=== PATIENT | female | born 1975 | race Caucasian/White ===

== ENCOUNTER 2021-07-10 08:26 | Emergency (ER) | payer OTHER, BC ==
[2021-07-10 08:33] VITALS: BP 172/98; PULSE 91
--- NOTE | 2021-07-10 09:13 | EDM.PDOC ---
ED HPI GENERAL MEDICAL PROBLEM - General Chief Complaint: Lower Extremity Injury/Pain Stated Complaint: LEFT FOOT INJURY Time Seen by Provider: 07/10/21 09:00 Source of Information: Reports: Patient History Limitations: Reports: No Limitations - History of Present Illness INITIAL COMMENTS - FREE TEXT/NARRATIVE: Patient comes emergency department today from work with concerns of an injury to her left foot. Yesterday the patient was at work at [employer] when she was using a large battery-operated mechanical torque wrench when it slipped out of her hands and fell landing on the dorsum of her left foot. She continued the day working but was quite uncomfortable in pain. She went back to work today and still had quite a bit of discomfort in her foot therefore she saw the nurse who told her to come to the emergency department. She is able to ambulate but it is somewhat uncomfortable. She has taken some ibuprofen with some improvement of pain. She denies any paresthesias. No other injury. Left Foot Pain Score (Numeric/FACES): 9 - Related Data Allergies Allergy/AdvReac Type Severity Reaction Status Date / Time escitalopram [From Lexapro] Allergy Shaking Verified 07/10/21 08:34 Home Meds: Home Meds ALPRAZolam [Alprazolam] 1 tab PO ASDIRECTED PRN 04/06/16 [History] Metoprolol Succinate 50 mg PO DAILY 07/10/21 [History] Past Medical History - Past Health History Medical/Surgical History: Denies Medical/Surgical History Social & Family History - Tobacco Use Tobacco Use Status *Q: Current Every Day Tobacco User Years of Tobacco use: 25 Packs/Tins Daily: 1 - Caffeine Use Caffeine Use: Reports: Coffee - Recreational Drug Use Recreational Drug Use: No Review of Systems - Review of Systems Review Of Systems: Comprehensive ROS is negative, except as noted in HPI. ED EXAM, GENERAL - Physical Exam Exam: See Below Exam Limited By: No Limitations General Appearance: Alert, WD/WN, No Apparent Distress Respiratory/Chest: No Respiratory Distress Cardiovascular: Normal Peripheral Pulses Peripheral Pulses: 2+: Posterior Tibial (L), Posterior Tibial (R), Dorsalis Pedis (L), Dorsalis Pedis (R) Extremities: No: Normal Inspection (Examination of the left foot there is some swelling on the mid dorsal aspect. There is no overt bony deformity. There is no bruising swelling ecchymosis. Ankle is unremarkable. She is able to flex and extend at the joints appropriately. CMS intact appropriately. No breaks in the skin) Neurological: Alert, Oriented Psychiatric: Normal Affect, Normal Mood Skin Exam: Warm, Dry, Intact, Normal Color, No Rash Course - Vital Signs Last Recorded V/S: Last Vital Signs Temp 97.1 F 07/10/21 08:27 Pulse 91 07/10/21 08:27 Resp 20 07/10/21 08:27 BP 172/98 H 07/10/21 08:27 Pulse Ox 100 07/10/21 08:27 - Orders/Labs/Meds Orders: Active Orders 24 hr Category Date Time Status Foot Comp Min 3V Lt [CR] Stat Exams 07/10/21 08:37 Taken - Radiology Interpretation Free Text/Narrative:: X-ray of the left ankle initially reviewed extemporaneously by myself. Does not show any overt bony deformity subluxation or fractures. Radiological review to follow. - Re-Assessments/Exams Free Text/Narrative Re-Assessment/Exam: 07/10/21 09:34 I discussed with the patient my extemporaneously view of the x-ray does not show any osseous abnormality or fracture. She does not want a surgical shoe. Massimo wrap for comfort. Rice therapy. We will keep her home from work today but her next scheduled shift is not until Tuesday and she should be okay to return back at that time. Anything new or worse she should recheck. She is comfortable this plan and her questions are answered. Departure - Departure Time of Disposition: 09:10 Disposition: Home, Self-Care 01 Clinical Impression: Foot injury Qualifiers: Encounter type: initial encounter Laterality: left Qualified Code(s): S99.922A - Unspecified injury of left foot, initial encounter - Discharge Information Instructions: Pain Medicine Instructions, [id number] Forms: ED Department Discharge Additional Instructions: Tylenol and or Ibuprofen as needed for pain. Ice or heat to the foot. Massimo wrap for comfort. Return to the ED if new or worsening symptoms. Follow up with PCP in a week if not improving sooner if worse. Sepsis Event Note (ED) - Focused Exam Vital Signs: Vital Signs Temp Pulse Resp BP Pulse Ox 07/10/21 08:27 97.1 F 91 20 172/98 H 100 - My Orders Last 24 Hours: My Active Orders 07/10/21 08:37 Foot Comp Min 3V Lt [CR] Stat - Assessment/Plan Last 24 Hours: My Active Orders 07/10/21 08:37 Foot Comp Min 3V Lt [CR] Stat
== END 2021-07-10 09:30 | disposition home or self-care (01) ==
LOC: LL.ED 08:26
DX: S99.922A Unspecified injury of left foot, initial encounter (principal); Z88.5 Allergy status to narcotic agent; Z72.0 Tobacco use; W20.8XXA Other cause of strike by thrown, projected or falling object, initial encounter; Y99.0 Civilian activity done for income or pay
CPT/HCPCS: 73630-LT; 99283; 99283-25

== ENCOUNTER 2022-11-27 13:20 | Emergency (ER) | payer BC ==
[2022-11-27] MEDS ORDERED: cloNIDine 0.1 MG Tab PO ONE (14:27)
[2022-11-27 14:39] VITALS: BP 186/100; PULSE 86
== END 2022-11-27 14:55 | disposition home or self-care (01) ==
LOC: LL.ED 13:20
DX: T16.2XXA Foreign body in left ear, initial encounter (principal); H65.193 Other acute nonsuppurative otitis media, bilateral; J06.9 Acute upper respiratory infection, unspecified; B96.89 Other specified bacterial agents as the cause of diseases classified elsewhere; I16.0 Hypertensive urgency; I10 Essential (primary) hypertension; F17.210 Nicotine dependence, cigarettes, uncomplicated; Z88.8 Allergy status to other drugs, medicaments and biological substances; Z79.899 Other long term (current) drug therapy
CPT/HCPCS: 99282; A9270-GY

== ENCOUNTER 2023-03-28 15:26 | Emergency (ER) | payer BC ==
[2023-03-28 15:44] VITALS: PULSE 92
[2023-03-28 16:40] VITALS: BP 182/108
== END 2023-03-28 16:00 | disposition home or self-care (01) ==
LOC: LL.ED 15:26
DX: M62.830 Muscle spasm of back (principal); I10 Essential (primary) hypertension; F17.210 Nicotine dependence, cigarettes, uncomplicated; Z79.899 Other long term (current) drug therapy; Z88.8 Allergy status to other drugs, medicaments and biological substances
CPT/HCPCS: 99283

== ENCOUNTER 2025-07-31 20:27 | Emergency (ER) | payer BC ==
[2025-07-31 20:45] VITALS: BP 163/133; PULSE 125
== END 2025-07-31 21:04 | disposition home or self-care (01) ==
LOC: LL.ED 20:27
DX: F41.9 Anxiety disorder, unspecified (principal); I10 Essential (primary) hypertension; Z88.0 Allergy status to penicillin; Z79.899 Other long term (current) drug therapy
CPT/HCPCS: 99283; A9270-GY